=== PATIENT | female | born 1945 | race Caucasian/White ===

== ENCOUNTER 2018-05-17 06:37 | Observation (INO) | payer OTHER ==
[~2018-05-17] VITALS: Ht 170.2 cm; Wt 98.0 kg
--- NOTE | ~2018-05-17 | EKG ---
[address] [address] ELECTROCARDIOGRAM REPORT Name: MANDEEP SWANSON Room #: 209-P [facility] M.R.#: [id number] Admission: 05/17/18 Attend Phys: Tyrel Christianson MD, Discharge: Date of : 41 Report #: [id number] THIS REPORT FOR: //name// [facility] Test Date: 2018-05-17 Test Time: 07:16:55 Pat Name: MANDEEP SWANSON Department: Room: 209 Gender: F Quality Control Head: Rodrigo BHATTI : 1945 Requested By: Tyrel Christianson Order Number: [id number] MD: Red Tavares Measurements Intervals [place] Rate: 49 P: 57 NH: 175 QRS: -30 QRSD: 119 T: 26 QT: 473 QTc: 428 Interpretive Statements Sinus bradycardia Compared to ECG 05/08/2012 08:07:24 No significant changes Electronically Signed On 05-17-2018 12:03:48 TRIPOLER by Red Tavares [email or web address] <ELECTRONICALLY SIGNED> By: Red Tavares MD 05/17/18 1203 D: 12/715 5 Red Tavares MD /HESHAM
--- NOTE | ~2018-05-17 | D ---
[facility] [place] [address] DISCHARGE SUMMARY Name: MANDEEP SWANSON Room #: 209-P [facility] M.R.#: [id number] Admission: 05/17/18 Attend Phys: Tyrel Christianson MD, Discharge: Date of : 43 Report #: [id number] THIS REPORT FOR: //name// CC: Tyrel Valentine Billsameer PIERCE DATE OF SERVICE: 05/17/2018 DISCHARGE DIAGNOSES: 1. Unstable angina. 2. Coronary artery disease with stenting of the proximal right coronary with a 2.5 x 17 mm EluNIR medicated stent. 3. Hypertension. 4. Dyslipidemia. 5. Tobacco dependency. 6. Chronic kidney disease. HISTORY OF PRESENT ILLNESS: For the complete details of the history of present illness, see dictated history and physical. Briefly, the patient is a 72-year-old woman with a history of coronary artery disease with mid right coronary stenting in 2011 with a 2.75 x 18 mm Xience stent. She now presents with progressive chest discomfort with shortness of breath. Many of her symptoms were reminiscent to what she experienced prior to her last stenting procedure many years ago. Her recent evaluation included a VQ scan that was negative for pulmonary embolism upper endoscopy, which demonstrated peptic ulcer disease. She is admitted for coronary angiography. HOSPITAL COURSE: The patient was admitted and underwent coronary angiography. The full details of this can be found under separate heading and dictation. In summary, left ventricular systolic function was normal. Mild plaquing was present in the LAD and circumflex. There was a critical stenosis in the proximal portion of the right coronary. This was successfully ballooned and stented with a 2.5 x 17 mm EluNIR stent postdilated with a noncompliant balloon to 2.75 mm. Her post-procedural course was uneventful. She was treated with heparin, Integrilin, aspirin and prasugrel in the periprocedural setting. Her discharge medicines were reconciled. Due to the patient's history of statin intolerance, she has been maintained on monoclonal antibody therapy with good results. An outpatient lipid profile is planned. DISCHARGE DIET: Low fat, low cholesterol, heart healthy diet. Discharge arrangements were made for outpatient cardiac rehabilitation. DISCHARGE MEDICATIONS: Include aspirin, prasugrel 10 mg daily, Protonix [address] [address] DISCHARGE SUMMARY Name: MANDEEP SWANSON NIRMAL Room #: 209-P [facility] Leandra Shrestha#: [id number] Admission: 05/17/18 Attend Phys: Tyrel Christianson MD, Discharge: Date of : 43 Report #: [id number] daily, sucralfate 1 gram 4 times a day, losartan 50 mg daily, Toprol 25 mg daily, multivitamin, alprazolam as needed. Repatha injection. DISCHARGE FOLLOWUP: With myself in 4-6 weeks, follow up with Dr. Serge Khan in 1-2 weeks. DISCHARGE ACTIVITY: As instructed post-catheterization. DISCHARGE CONDITION: Stable and improved. <ELECTRONICALLY SIGNED> By: Tyrel Christianson MD, [facility] 05/18/18 0918 1636 1752 Tyrel Christianson MD, FAC /nt
--- NOTE | ~2018-05-17 | CATHLAB ---
[facility] [address] [place] [address] INVASIVE PROCEDURE REPORT Name: SKYMANDEEP NIRMAL Room #: 209-P ADM IN .R.#: [id number] Admission: 05/17/18 Attend Phys: Tyrel Christianson, Discharge: Date of : 41 Date of Service: 05/17/18 1304 Report #: [id number] THIS REPORT FOR: //name// APPROVED REPORT Study performed: 05/17/2018 08:53:18 Patient Details Patient Status: Out-Patient Room #: The patient is a 72 year-old female Event Personnel Tyrel Christianson Books Binder, Caleb Duarte, Martina Cunningham Penny, Wes RN Procedures Performed Art Access - R femoral artery* Left Heart Cath w/or w/o Coronaries [id number] [facility] [address] Initial Mod Sed Same Phys/QHP Gr5y [id number] 39781 Mod Sed Same Phys/QHP Ea 204924 HUGO Place w/wo Plasty Single RCA 320778 Hemostasis w/ Mynx Indication Chest pain Procedure Narrative The patient was brought electively to the Cardiac Catheterization Laboratory and was prepped and draped in a sterile manner. The Right Groin^ was infiltrated with 1% Lidocaine subcutaneous anesthesia. A PINNACLE 6FR Sheath #[id number] sheath was inserted into the RFA^. Coronary angiography was performed using coronary diagnostic catheters. The right coronary system was accessed and visualized with a JR 4 catheter. The left coronary system was accessed and visualized with a JL 4 catheter. The left ventricle was accessed and visualized with a Pigtail catheter. Left ventricular/Aortic Valve gradient assessed via catheter pullback. Left ventriculogram was performed in SANCHEZ projection. Closure device was deployed with a 6 Fr Mynx. The patient tolerated the procedure well and there were no complications associated with the procedure. There was no hematoma. Intraoperative Conscious Sedation Sedation start time: 09:29 Case end Time: 10:12 Fentanyl 50 mcg Versed 2 mg Fluoro Time: 5.90 minutes [address] [place] [address] INVASIVE PROCEDURE REPORT Name: SKYMANDEEP NIRMAL Room #: 209-P [facility] IN ..#: [id number] Admission: 05/17/18 Attend Phys: Tyrel Christianson, Discharge: Date of : 41 Date of Service: 05/17/18 1304 Report #: [id number] Dose: DAP 9058 cGycm2 1350 mGy Contrast Type and Amount: Visipaque 155 ml Coronary Angiography The patient's coronary anatomy is right dominant. Diagnostic Cath Left Main Mild distal left main plaquing LAD Mild calcific 20-30% proximal LAD plaquing Diagonal 1 Several relatively small diagonal branches, angiographically normal. Circumflex Moderately large nondominant circumflex OM1 Mild proximal OM1 plaquing OM2 30-40% proximal OM 2 stenosis Right Coronary Severe proximal right coronary stenosis of 99%. Minimal mid right coronary plaquing within the previously placed Xience stent R PDA Normal RPLV Normal Left Ventriculography The left ventricle is normal in size with normal contractility. The left ventricular ejection fraction is estimated to be 60-65%. Left ventricular wall motion abnormalities are not present. There is no mitral insufficiency. Hemodynamics The aortic pressure is 160/71 mmHg with a mean of 106 mmHg. The left ventricular pressure is 206/2 mmHg with a mean of mmHg. The left ventricular end diastolic pressure is 29 mmHg. PCI Technique Lesion Anticoagulation was achieved with Heparin, Integrilin. Patient was preloaded with Effient. Percutaneous coronary intervention was performed on the mid right coronary artery. The lesion stenosis prior to intervention was 99% with TOSHIA 3 flow. A Entelostronic JR 4 Guide Catheter was used to engage the right coronary ostium. A Luge Wire Interventional Guidewire was used to cross the lesion. BALLOON DILATION A Balloon catheter Mozec 2.5 x 14 was inserted and inflated up to 10.00atm for 23seconds. STENT DEPLOYMENT A drug-eluting stent Elunir 2.5 x 17 was inserted and inflated up to 16.00atm for 27seconds. [facility] [address] [place] [address] INVASIVE PROCEDURE REPORT Name: SWANSONMANDEEP Room #: 209-P [facility] IN M.R.#: [id number] Admission: 05/17/18 Attend Phys: Tyrel Christianson, Discharge: Date of : 41 Date of Service: 05/17/18 1304 Report #: [id number] POST STENT DEPLOYMENT BALLOON DILATION A Balloon catheter NC Trek 2.5 x 15 was inserted and inflated up to 22.00atm for 30seconds. Additional Inflation: 22.00atm for 27seconds. Final angiography reveals 0 % stenosis with TOSHIA 3 flow. Conclusion 1. Normal global and regional left ventricular systolic function. EF 65% 2. Mild left main plaquing 3. Mild-moderate circumflex plaquing 4. 99% proximal RCA stenosis, stented with 2.5 x 17mm EluNIR medicated stent, post-dilated to 2.75mmHg 5. Mild mid RCA intrastent plaquing (Xience 2.75mm) Recommendations Smoking Cessation Aggressive Medical Therapy Medications Administered TOÑO Inhibitor (any) Aspirin (any) Beta Zhang (any) Statin (any) Prasugrel Smoking Cessation <ELECTRONICALLY SIGNED> By: Tyrel Christianson MD, [facility] 05/17/18 1304 1304 1304 Tyrel Christianson MD, FACC /INF
--- NOTE | ~2018-05-17 | EKG ---
[address] [address] ELECTROCARDIOGRAM REPORT Name: MANDEEP SWANSON Room #: 209-P [facility] M.R.#: [id number] Admission: 05/17/18 Attend Phys: Tyrel Christianson MD, Discharge: Date of : 43 Report #: [id number] THIS REPORT FOR: //name// [facility] Test Date: 2018-05-17 Test Time: 11:05:05 Pat Name: MANDEEP SWANSON Department: Room: 209 Gender: F Roller Mill Tender: Rodrigo BHATTI : 1945 Requested By: Tyrel Christianson Order Number: [id number] MD: Red Tavares Measurements Intervals [place] Rate: 50 P: 60 VA: 176 QRS: -33 QRSD: 123 T: 40 QT: 470 QTc: 429 Interpretive Statements Sinus rhythm Nonspecific intraventricular conduction delay Compared to ECG 05/08/2012 08:07:24 no significant changes Electronically Signed On 05-17-2018 12:13:36 NEEDLE PUNCH MACHINE OPERATOR by Red Tavares [email or web address] <ELECTRONICALLY SIGNED> By: Red Tavares MD 05/17/18 1213 1105 04 Red Tavares MD /EPI
--- NOTE | ~2018-05-17 | EKG ---
[address] [place] [address] ELECTROCARDIOGRAM REPORT Name: AGNIESZKA SWANSONKAREN KINNEY Room #: 209-P [facility] M.R.#: [id number] Admission: 05/17/18 Attend Phys: Tyrel Christianson MD, Discharge: Date of : 43 Report #: [id number] THIS REPORT FOR: //name// [facility] Test Date: 2018-05-18 Test Time: 07:52:33 Pat Name: MANDEEP SWANSON Department: Room: 209 P Gender: F Director Of Workforce Development: KATHLEEN : 1945 Requested By: Tyrel Christianson Order Number: [id number] MD: Tyrel Christianson Measurements Intervals [place] Rate: 57 P: 51 MD: 169 QRS: -37 QRSD: 117 T: 32 QT: 463 QTc: 451 Interpretive Statements Sinus rhythm Nonspecific IVCD with LAD Baseline wander in lead(s) V1,V2 Compared to ECG 05/17/2018 11:05:05 No significant change was found Electronically Signed On 05-18-2018 11:01:39 INFORMATICA DEVELOPER by Tyrel Christianson [email or web address] <ELECTRONICALLY SIGNED> By: Tyrel Christianson MD, [facility] 05/18/18 1101 0752 0752 Tyrel Christianson MD, [facility] /EPI
[~2018-05-17 06:37] MED LIST: ACETAMINOPHEN325 M1 PO; ASPIRIN81 M2 PO; ATORVASTATIN CA20 MG PO; CARAFATE 1 GM TA1 G1 PO; EFFIENT10 MG PO; FLAGYL500 MG PO; HYDROCODON-ACE1 EAC7; IBUPROFEN 800800 M1 PO; LEVAQUIN 500 M500 M8 PO; MACRODANTIN100 MG; NEPHROCAPS SOFT1 CAP PO; NORCO 5-325 TA1 EACH PO; PEPCID40 MG PO; PHENAZOPYRIDIN200 M2; PROTONIX40 M1 PO; RAPAFLO; REPATHA SU140 MG/1 M SUBQ; VITAMIN D1000 UNI1 PO; VITAMINC500 PO; XANAX 0.5 MG0.5 MG PO
[2018-05-17 07:09] VITALS: BP 133/41
[2018-05-17 07:11] LABS: HEMATOCRIT 40.6 % (37.0-47.0); HEMOGLOBIN 13.8 gm/dL (12.0-15.0); MCH 31.8 pg (26.0-34.0); MCV 93.6 fL (80.0-100.0); RBC 4.34 mil/uL (4.20-5.00); RDW 14.5 % (10.5-14.5); WBC 8.4 thou/uL (4.0-11.0)
[2018-05-17 07:20] LABS: CALCIUM 9.7 mg/dL (8.5-10.1); CREATININE 1.8 mg/dL (0.6-1.0); POTASSIUM 4.4 mmol/L (3.5-5.1)
[2018-05-17] MEDS ORDERED: VITAMIN D5000 UNIT PO (07:25)
[2018-05-17] MEDS ORDERED: BYSTOLIC 5 MG5 M1 PO ×2 (07:27→14:41)
[2018-05-17] MEDS ORDERED: OMEGA-31000 M1 PO (07:28)
[2018-05-17] MEDS ORDERED: BIOTIN1 M1 PO (07:29)
[2018-05-17 10:45] VITALS: BP 135/69
[2018-05-17 12:23] VITALS: BP 115/59
[2018-05-17] MEDS ORDERED: ZANTAC 150MG T150 MG PO (13:32)
[2018-05-17] MEDS ORDERED: PRINIVIL20 M1 PO (13:32)
[2018-05-17] MEDS ORDERED: NOLVADEX20 MG PO (13:32)
[2018-05-17] MEDS ORDERED: AROMASIN25 MG PO (13:33)
[2018-05-17] MEDS ORDERED: CARAFATE 1 GM TA1 G1 PO (14:08)
[2018-05-17 15:36] VITALS: BP 143/60
[2018-05-17 19:54] VITALS: BP 114/48
[2018-05-18 00:09] VITALS: BP 113/46
[2018-05-18 04:30] LABS: HEMATOCRIT 36.7 % (37.0-47.0); HEMOGLOBIN 12.4 gm/dL (12.0-15.0); MCH 31.6 pg (26.0-34.0); MCHC 33.7 g/dL (28.0-37.0); MCV 93.5 fL (80.0-100.0); RBC 3.93 mil/uL (4.20-5.00); RDW 14.5 % (10.5-14.5); WBC 9.3 thou/uL (4.0-11.0)
[2018-05-18 04:40] LABS: ALBUMIN 2.9 g/dL (3.4-5.0); ANION GAP 6 mmol/L (7-16); BUN 22 mg/dL (7-18); CALCIUM 8.9 mg/dL (8.5-10.1); CHLORIDE 105 mmol/L (98-107); CO2 27 mmol/L (21-32); CREATININE 1.7 mg/dL (0.6-1.0); GLUCOSE 117 mg/dL (74-106); SGOT 19 U/L (15-37); SGPT 28 U/L (30-65); SODIUM 138 mmol/L (136-145); TOTAL BILIRUBIN 0.3 mg/dL (<0.1-1.0); TOTAL PROTEIN 6.2 g/dL (6.4-8.2); TROPONIN-I <0.06 ng/mL (<0.06)
[2018-05-18 06:05] VITALS: BP 138/63
[2018-05-18 09:00] VITALS: BP 137/57
[2018-05-18] MEDS ORDERED: ASPIRIN81 M2 PO (09:15)
[2018-05-18] MEDS ORDERED: TOPROL XL25 MG PO (09:15)
[2018-05-18] MEDS ORDERED: EFFIENT10 MG PO (09:15)
[2018-05-18] MEDS ORDERED: COZAAR 50 MG TA50 M1 PO (09:15)
[2018-05-18 11:17] VITALS: BP 138/63
[2018-05-18 11:40] VITALS: BP 137/57
== END 2018-05-18 12:30 | disposition home or self-care (01) ==
LOC: CATH 06:37 → 2N 10:42 → CATH 10:54 → 2N 05-18 12:30
PROVIDERS: Internal Medicine
DX: I25.110 Atherosclerotic heart disease of native coronary artery with unstable angina pectoris (principal); E78.5 Hyperlipidemia, unspecified; I12.9 Hypertensive chronic kidney disease with stage 1 through stage 4 chronic kidney disease, or unspecified chronic kidney disease; N18.9 Chronic kidney disease, unspecified; I35.1 Nonrheumatic aortic (valve) insufficiency; E78.00 Pure hypercholesterolemia, unspecified; I65.23 Occlusion and stenosis of bilateral carotid arteries; F17.210 Nicotine dependence, cigarettes, uncomplicated; Z98.890 Other specified postprocedural states; Z79.899 Other long term (current) drug therapy

== ENCOUNTER 2018-06-07 19:02 | Inpatient (IN) | payer OTHER ==
[~2018-06-07] VITALS: Ht 170.2 cm; Wt 105.4 kg
--- NOTE | ~2018-06-07 | H ---
[facility] [place] [address] HISTORY AND PHYSICAL Name: MANDEEP SWANSON Room #: 204-P ADM IN M.R.#: [id number] Admission: 06/07/18 Attend Phys: Edmund Ernandez MD Discharge: Date of : 43 Report #: [id number] THIS REPORT FOR: //name// CC: Edmund Khan DATE OF SERVICE: 06/07/2018 ATTENDING PHYSICIAN: Dr. Ernandez. PRIMARY CARE PHYSICIAN: Dr. Serge Khan. CHIEF COMPLAINT: Atrial fibrillation with rapid ventricular response. HISTORY OF PRESENT ILLNESS: The patient is a 72-year-old female who was sent as a direct admit from [facility] for atrial fibrillation with RVR. Her recent history dates back to mid-May when she had a stent placed in her proximal RCA here at [facility]. She follows with Dr. Christianson with Cardiology. She had been on Effient as well as metoprolol and losartan. She says she was just about to start cardiac rehab at [facility] yesterday when they noticed that her heart rate was elevated. She said prior to that for a few days, she had been feeling some palpitations. She has also been noticing at home her blood pressure was running low with systolic blood pressures in the 90s. She thought it was due to starting the metoprolol and losartan. She had not been having any dizzy spells or lightheadedness, but did say that her eyes seem to blurry at times. According to Cath ER records, her heart rate was 162 upon arrival, in AFib with RVR. She has never had any history of atrial fibrillation. She is denying any current chest pain. Prior to her recent catheterization, she has been having some chest tightness as well as dyspnea on exertion. Therefore, a planned catheterization was done at that time, though symptoms have now resolved. Her EF during her heart catheterization was 65%. She does have chronic kidney disease and does only have one kidney due to renal cancer in which a right nephrectomy was required. Her last known creatinine was 1.7-1.8 in mid-May 2018. She is currently on a Cardizem drip and resting comfortably in no acute distress. PAST MEDICAL HISTORY: Anxiety, coronary artery disease, hyperlipidemia, hypertension, breast cancer, renal cancer, chronic kidney disease stage 3, gastritis, obstructive sleep apnea. PAST SURGICAL HISTORY: Left elbow repair, skin cancer removal, rectal mass with bowel resection which was benign, bilateral mastectomy, right nephrectomy, coronary stent x 2, cholecystectomy, appendectomy, partial hysterectomy. ALLERGIES: No known drug allergies. [address] [address] HISTORY AND PHYSICAL Name: MANDEEP SWANSON NIRMAL Room #: 204-P [facility] IN M.R.#: [id number] Admission: 06/07/18 Attend Phys: Edmund Ernandez MD Discharge: Date of : 43 Report #: [id number] HOME MEDICATIONS: Effient 10 mg p.o. daily, Repatha 140 mg subQ, metoprolol 25 mg p.o. daily, losartan 50 mg daily, aspirin 325 mg daily, Xanax 0.5 mg at bedtime, ranitidine 150 mg p.o. b.i.d., vitamin C 500 mg daily and vitamin D3 10,000 units daily. SOCIAL HISTORY: The patient smokes 1 cigarette per day. She has been cutting back since December of this year. She reports she has been smoking up to a half pack of cigarettes per day for about 50 years prior to that. She denies any alcohol use or drug use. She does drink 2 cups of coffee and 1 Coke daily. She lives alone. She ambulates independently. She is a full code. FAMILY HISTORY: Her mother had heart disease and a stroke, but at the age of 82. Her father had heart disease and required a CABG, at the age of 84. REVIEW OF SYSTEMS: The patient does report that after her catheterization in May on the same day as her heart cath, she noticed the top of her right foot was sore after the procedure. She thought that it might have gotten bumped or was painful due to positioning during the procedure. This pain has persisted. She did develop some dark reddish bruising to the top of her foot that was very tender. She also has been having some swelling on the top of her foot that is worse with any ambulating. She denies any wound developing. The red area is not pruritic. She denies any known injury to the foot. She has not had any imaging of it. The patient was recently on Bactrim for the redness in her right foot, which she said got somewhat better, but the pain has persisted. She has completed the course of the antibiotic. All other 12-point review of systems was reviewed with the patient and otherwise negative unless stated in the HPI. PHYSICAL EXAMINATION: GENERAL: The patient is an alert female, in no acute distress. VITAL SIGNS: Temperature is 36.5, heart rate 85, respirations 18, blood pressure initially 118/66 and oxygen 98% on room air. HEENT: PERRLA. Sclerae are nonicteric. Oral mucosa is pink and moist. NECK: Supple, no JVD noted. CARDIAC: Heart rate is irregular. No murmurs, rubs or gallops. RESPIRATORY: Breath sounds are clear bilaterally. No wheezing or rhonchi. She is somewhat diminished in the bases. Breathing is nonlabored. ABDOMEN: Obese, soft, nontender with positive bowel sounds. VASCULAR: She does have 2+ edema to the dorsal side of her right foot. Otherwise, no peripheral edema noted. Pedal pulse is weak in the right foot, but posterior tibialis 2+. Toes on the right are warm and pink. SKIN: There is small area of erythema to the dorsal side of the right foot as well as edema in this area that extends up to the base of her toes. This area is extremely tender to palpate. There is no open wound or drainage. This does not appear to be bruising and there is no warmth to the area. NEUROLOGIC: The patient is alert and oriented x 3. Speech [place]. [place] [address] HISTORY AND PHYSICAL Name: MANDEEP SWANSON Room #: 204-P [facility] IN M.R.#: [id number] Admission: 06/07/18 Attend Phys: Edmund Ernandez MD Discharge: Date of : 43 Report #: [id number] moving all extremities equally. No focal neuro deficits noted. LABORATORIES AND DIAGNOSTICS: Blood work done at [facility] showed a WBC of 8.9, hemoglobin 14.3, platelets 291. Sodium 137, potassium 4.6, BUN 42, creatinine is 2.7, and glucose 131. LFTs are within normal limits. INR is 1.0. BNP is 282. Troponins negative. TSH is 3.347. EKG showed atrial fibrillation with RVR, rate of 144. ASSESSMENT AND PLAN: 1. New onset atrial fibrillation with rapid ventricular response. The patient has been given a Cardizem bolus and is currently on Cardizem drip. We will continue to titrate Cardizem, continue to monitor on telemetry, check TSH level. She did have recent cardiac catheterization. Consult Dr. Christianson for further recommendations. 2. Acute kidney injury on chronic kidney disease. Last known creatinine was 1.7 three weeks ago. This may have been due to the heart catheterization dye as well as possibly low perfusion due to hypotension. We will hold losartan and gently hydrate. This could have also been due to recent treatment with Bactrim. We will follow labs closely as she only has one kidney. 3. Coronary artery disease with recent stent to the right coronary artery. She denies any current chest pain. Continue Effient. Troponin at [facility] was negative. 4. Right foot pain and swelling. The patient was recently treated for cellulitis of the right foot. Etiology for this is unknown. Since she just had a heart catheterization, we should rule out arterial thrombus as this does not look like an active infection at this time. We will go ahead and check arterial Doppler in the morning. Check foot x-ray to rule out fracture and check CRP level. Since it does not look actively infected, we will hold off on antibiotics at this time since she is afebrile without any leukocytosis. 5. History of hypertension. She is currently hypotensive. We will hold losartan and gently hydrate, place holding parameters on metoprolol. She did receive a dose of Lopressor upon arrival. 6. History renal cancer. She does have a prior right nephrectomy. Creatinine is elevated. We will continue with plan as above. 7. Hyperlipidemia. Continue with Repatha per Cardiology. 8. Deep venous thrombosis prophylaxis, place sequential compression devices. We will continue to follow the patient closely throughout the hospitalization and make changes based on clinical status. By: 0630 2 Rocio Grullon, SOCORRO /nt
[~2018-06-07 19:02] MED LIST changes: +AROMASIN25 MG PO; +BIOTIN1 M1 PO; +BYSTOLIC 5 MG5 M1 PO; +COZAAR 50 MG TA50 M1 PO; +NOLVADEX20 MG PO; +OMEGA-31000 M1 PO; +PRINIVIL20 M1 PO; +TOPROL XL25 MG PO; +VITAMIN D5000 UNIT PO; +ZANTAC 150MG T150 MG PO
[2018-06-07 19:17] VITALS: BP 118/66
[2018-06-08] VITALS (7 sets, daily range): BP systolic 80–125; BP diastolic 40–64
--- NOTE | 2018-06-08 05:29 | NUR ---
PT WAS A DIRECT ADMIT FROM [facility] AT 1900 WITH AFIB RVR. PT IS ALERT AND ORIENTED WITH NO SIGN OF DISTRESS NOTED IN PT. NURSE PRACTITIONER NOTIFIED OF PATIENT'S ARRIVAL. ORDERS NOTED AND INTITIATED. ADMISSION ASSESSMENT, AND EDUCATION COMPLETED. UPON ARRIVAL, PT IS STILL IN AFIB, CARDIZEM DRIP CONTINUED BASED ON ORDERS. CREDIT RISK ANALYST CONSULT CALLED IN AT [address] SILVEIRA RETURNED CALL AT 2114. ORDERS RECEIVED, PT IS STABLE. HYPOTENSION NOTICED AND REPORTED TO NURSE PRACTITIONER. SCHEDULED MEDS ADMINISTERED TO PT, DENIES ANY FURTHER NEEDS AT THIS TIME.
[2018-06-08 05:59] LABS: HEMATOCRIT 38.2 % (37.0-47.0); HEMOGLOBIN 12.7 gm/dL (12.0-15.0); MCH 31.2 pg (26.0-34.0); MCHC 33.2 g/dL (28.0-37.0); MCV 93.8 fL (80.0-100.0); RBC 4.07 mil/uL (4.20-5.00); RDW 14.3 % (10.5-14.5); WBC 7.4 thou/uL (4.0-11.0)
[2018-06-08 06:17] LABS: ANION GAP 11 mmol/L (7-16); BUN 39 mg/dL (7-18); CALCIUM 8.8 mg/dL (8.5-10.1); CHLORIDE 106 mmol/L (98-107); CO2 21 mmol/L (21-32); CREATININE 2.6 mg/dL (0.6-1.0); GLUCOSE 99 mg/dL (74-106); POTASSIUM 4.6 mmol/L (3.5-5.1); SODIUM 138 mmol/L (136-145); TROPONIN-I <0.06 ng/mL (<0.06)
[2018-06-08 11:19] LABS: URINE BILIRUBIN NEGATIVE (Negative); URINE BLOOD TRACE (Negative); URINE CLARITY CLEAR; URINE COLOR YELLOW; URINE GLUCOSE-RANDOM* NEGATIVE (Negative); URINE KETONES NEGATIVE (Negative); URINE LEUKOCYTES-REFLEX NEGATIVE (Negative); URINE NITRITE-REFLEX NEGATIVE (Negative); URINE PROTEIN (DIPSTICK) NEGATIVE (Negative); URINE SPECIFIC GRAVITY 1.015 (1.005-1.035); URINE UROBILINOGEN 0.2 E.U./dl (0.2-1.0)
--- NOTE | 2018-06-08 16:35 | NUR ---
ASSESSMENT DOCUMENTED. PT ALERT AND ORIENTED. PLEASANT AND COOPERATIVE WITH CARE.SEEN BY DR SILVEIRA. HR ON 60'S. LOW BP THIS AM. CARDIZEM DRIP STOPPED. GIVEN PO CARDIZEM MED THIS AM. REPORT HAVING PAIN ON THE RIGHT FOOT. DR. DAWSON AWARE. NEW ORDERS NOTED. HEATING PAD APPLIED ON THE RIGHT FOOT. WILL CONTINUE TO MONITOR.
--- NOTE | 2018-06-09 02:11 | NUR ---
ASSUMED CARE OF PT AT SHIFT CHANGE. ASSESSMENTS CHARTED. MEDS GIVEN PER AUG. PT AOX4, C/O RIGHT FOOT PAIN, MANAGED WITH HEATING PAD. VSS. DENIES CHEST PAIN. NO S/SX OF CARDIAC OR RESP DISTRESS. PT NSR ON MONITOR THROUGHOUT NIGHT. WILL CONTINUE TO MONITOR AND FOLLOW POC.
[2018-06-09 04:49] VITALS: BP 114/44
[2018-06-09 07:23] LABS: HEMATOCRIT 35.4 % (37.0-47.0); HEMOGLOBIN 11.9 gm/dL (12.0-15.0); MCH 31.5 pg (26.0-34.0); MCHC 33.5 g/dL (28.0-37.0); MCV 94.2 fL (80.0-100.0); RBC 3.76 mil/uL (4.20-5.00); RDW 14.5 % (10.5-14.5); WBC 7.1 thou/uL (4.0-11.0)
[2018-06-09 07:25] VITALS: BP 120/57
[2018-06-09 07:39] LABS: ALBUMIN 2.9 g/dL (3.4-5.0); CALCIUM 8.8 mg/dL (8.5-10.1); CREATININE 2.1 mg/dL (0.6-1.0); PHOSPHORUS 3.4 mg/dL (2.5-4.9); POTASSIUM 4.9 mmol/L (3.5-5.1); TOTAL BILIRUBIN 0.2 mg/dL (<0.1-1.0); TOTAL PROTEIN 6.2 g/dL (6.4-8.2)
--- NOTE | 2018-06-09 08:06 | 2DMMODE ---
[facility] [address] [facility] [place] [address] 2 D/M-MODE ECHOCARDIOGRAM Name: MANDEEP SWANSON NIRMAL Room #: 204-P ADM IN .R.#: [id number] Admission: 06/07/18 Attend Phys: Edmund Ernandez MD Discharge: Date of : 41 Date of Service: 06/09/18 0805 Report #: [id number] THIS REPORT FOR: //name// APPROVED REPORT Study performed: 06/08/2018 09:54:21 EXAM: Comprehensive 2D, Doppler, and color-flow Echocardiogram Patient Location: Bedside Room #: 204 Status: on-call BSA: 2.05 HR: 63 bpm BP: 101/64 mmHg Rhythm: NSR Other Information Study Quality: Adequate Risk Factors: Cardiac Risk Factors: HTN, Hyperlipidemia, Smoking Indications Atrial Fibrillation CAD CAD with Stent RCA (2018) 2D Dimensions RVDd: 41.13 mm IVSd: 10.43 (7-11mm) LVOT Diam: 18.00 (18-24mm) LVDd: 47.01 mm PWd: 11.01 (7-11mm) Ascending Ao: 31.96 (22-36mm) LVDs: 32.60 (25-40mm) Aortic Root: 27.54 mm LV Single Plane 4CH: 60.72 % LV Single Plane 2CH: 67.69 % Biplane EF: 63.2 % Volumes Left Atrial Volume (Systole) Single Plane 4CH: 47.42 mL Single Plane 2CH: 62.41 mL LA ESV Index: 30.00 mL/m2 Aortic Valve [facility] [address] [place] [address] 2 D/M-MODE ECHOCARDIOGRAM Name: MANDEEP SWANSON Room #: 204-P [facility] IN ..#: [id number] Admission: 06/07/18 Attend Phys: Edmund Ernandez MD Discharge: Date of : 41 Date of Service: 06/09/18 0805 Report #: [id number] AoV Peak Michael.: 1.28 m/s AO Peak Gr.: 6.56 mmHg LVOT Max P.68 mmHg LVOT Max V: 1.08 m/s JOHN Vmax: 2.19 cm2 AI Vmax: 3.08 m/s AI Lares: 1.51 m/s2 AI PHT: 588.87 ms Mitral Valve E/A Ratio: 1.6 MV Decel. Time: 260.15 ms MV E Max Michael.: 0.93 m/s MV A Michael.: 0.57 m/s MV PHT: 75.44 ms IVRT: 48.44 ms TDI E/Lateral E': 11.63 E/Medial E': 11.63 Medial E' Michael.: 0.08 m/s Lateral E' Michael.: 0.08 m/s Pulmonary Valve PV Peak Michael.: 1.03 m/s PV Peak Gr.: 4.20 mmHg Pulmonary Vein P Vein S: 0.67 m/s P Vein A: 0.20 m/s P Vein D: 0.82 m/s P Vein A Dur.: 110.7 msec P Vein S/D Ratio: 0.82 Tricuspid Valve TR Peak Michael.: 2.58 m/s RAP Estimate: 7.00 mmHg TR Peak Gr.: 26.59 mmHg PA Pressure: 34.00 mmHg Left Ventricle The left ventricle is normal size. There is normal LV segmental wall motion. There is normal left ventricular wall thickness. Left ventricular systolic function is normal. The left ventricular ejection fraction is within the normal range. LVEF is 60-65%. The left ventricular diastolic function is normal. Right Ventricle The right ventricle is normal size. The right ventricular systolic function is normal. [facility] [address] [place] [address] 2 D/M-MODE ECHOCARDIOGRAM Name: MANDEEP SWANSON NIRMAL Room #: 204-P [facility] IN [facility].#: [id number] Admission: 06/07/18 Attend Phys: Edmund Ernandez MD Discharge: Date of : 41 Date of Service: 06/09/18 0805 Report #: [id number] The left atrium size is normal. The right atrium size is normal. Aortic Valve The aortic valve is normal in structure. Mild aortic regurgitation. There is no aortic valvular stenosis. Mitral Valve There is mild mitral annular calcification. Trace to mild mitral regurgitation. No evidence of mitral valve stenosis. Tricuspid Valve The tricuspid valve is normal in structure. Trace tricuspid regurgitation. Pulmonary artery pressure is 34 mmHg. Pulmonic Valve The pulmonary valve is normal in structure. Trace pulmonic regurgitation. Great Vessels The aortic root is normal in size. IVC is normal in size and collapses >50% with inspiration. Pericardium There is no pericardial effusion. <Conclusion> The left ventricle is normal size. LVEF is 60-65%. The left ventricular diastolic function is normal. The right ventricle is normal size. The left atrium size is normal. Mild aortic regurgitation. There is mild mitral annular calcification. Trace to mild mitral regurgitation. Trace tricuspid regurgitation. Pulmonary artery pressure is 34 mmHg. The aortic root is normal in size. There is no pericardial effusion. <ELECTRONICALLY SIGNED> By: Hawk Reagan MD, FACC 06/09/18804 4 4 Hawk Reagan MD, FACC /INF
[2018-06-09 11:50] VITALS: BP 120/46
[2018-06-09 15:30] VITALS: BP 130/50
--- NOTE | 2018-06-09 17:47 | NUR ---
PT ALERT AND ORIENTED. VSS. DENIED HAVING PAIN OR DISCOMFORT. SEEN BY DR. DAWSON AND DR. PRIDE. NEW ORDERS NOTED. PROGRESSING WELL TOWARD DISCHARGE GOAL. WILL CONTINUE TO MONITOR.
[2018-06-09 19:36] VITALS: BP 140/84
--- NOTE | 2018-06-09 21:53 | EKG ---
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1945 Requested By: Hawk Reagan Order Number: [id number] MD: Arcenio Quesada Measurements Intervals [place] Rate: 107 P: MN: QRS: -38 QRSD: 109 T: 59 QT: 362 QTc: 483 Interpretive Statements Atrial fibrillation Abnormal R-wave progression, late transition Left ventricular hypertrophy Compared to ECG 05/18/2018 07:52:33 Left ventricular hypertrophy now present Sinus rhythm no longer present Intraventricular conduction delay no longer present Electronically Signed On 06-09-2018 21:53:46 [employer] by Arcenio Quesada [email or web address] <ELECTRONICALLY SIGNED> By: Arcenio Quesada MD 06/09/18 2153 0640 Arcenio Quesada MD /EPI
[2018-06-10 04:02] LABS: ALBUMIN 2.6 g/dL (3.4-5.0); CALCIUM 8.5 mg/dL (8.5-10.1); CREATININE 1.9 mg/dL (0.6-1.0); PHOSPHORUS 3.1 mg/dL (2.5-4.9); POTASSIUM 4.4 mmol/L (3.5-5.1)
[2018-06-10 04:31] VITALS: BP 118/49
--- NOTE | 2018-06-10 04:38 | NUR ---
pt resting quietly in room thru the noc, scheduled lyrica given for r foot pain and pt states much relief noted vss, fluids infusing in l upper arm, will con't to monitor per ppoc.
[2018-06-10 07:30] VITALS: BP 128/62
[2018-06-10 13:00] VITALS: BP 176/74
[2018-06-10 16:00] VITALS: BP 138/59
--- NOTE | 2018-06-10 16:22 | NUR ---
ASSUMED CARE THIS AM - PT ALERT AND PLEASANT - ASSESSMENTS COMPLETED CHARTED - NO COMPLAINTS THROUGHOUT THE DAY FROM PT - VSS - PROBABLE DISCHARGE IN THE AM
[2018-06-10 21:30] VITALS: BP 161/69
[2018-06-11 02:57] LABS: HEMATOCRIT 34.2 % (37.0-47.0); HEMOGLOBIN 11.2 gm/dL (12.0-15.0); MCH 30.7 pg (26.0-34.0); MCHC 32.8 g/dL (28.0-37.0); MCV 93.6 fL (80.0-100.0); RBC 3.65 mil/uL (4.20-5.00); RDW 13.9 % (10.5-14.5); WBC 7.2 thou/uL (4.0-11.0)
[2018-06-11 03:11] LABS: ALBUMIN 2.7 g/dL (3.4-5.0); CALCIUM 8.4 mg/dL (8.5-10.1); CREATININE 1.8 mg/dL (0.6-1.0); PHOSPHORUS 3.8 mg/dL (2.5-4.9); POTASSIUM 4.2 mmol/L (3.5-5.1)
[2018-06-11 04:25] VITALS: BP 130/53
--- NOTE | 2018-06-11 06:56 | NUR ---
AASUMED PT CARE AT 1900 WITH BEDSIDE REPORT TAKEN WITH NO0 SIGN OF DISTRESS NOTED IN PT. PT IS ALERT AND ORIENTED. PT IS STABLE WITH VITAL SIGN STABLE. SCHEDULED MED ADMINISTERED TO PT. DENIES ANY NEED AT THIS TIME. PT DENIES ANY PAIN. DENIES ANY FURTHER NEED AT THIS TIME.
[2018-06-11 07:40] VITALS: BP 113/53
[2018-06-11 11:35] VITALS: BP 137/59
[2018-06-11] MEDS ORDERED: XARELTO15 MG PO (11:50)
[2018-06-11] MEDS ORDERED: PACERONE 200 M200 M1 PO (11:52)
[2018-06-11] MEDS ORDERED: METOPROLOL SUCC50 MG PO (11:53)
[2018-06-11] MEDS ORDERED: TORSEMIDE20 MG PO (11:54)
[2018-06-11] MEDS ORDERED: LYRICA 50 MG50 MG PO (11:54)
[2018-06-11 12:26] VITALS: BP 113/57
--- NOTE | 2018-06-14 09:41 | HC ---
[facility] [place] [address] CONSULTATION Name: SKYMANDEEP NIRMAL Room #: 204-P [facility] IN M.R.#: [id number] Admission: 06/07/18 Attend Phys: Paulina Barillas MD Discharge: 06/11/18 Date of : 41 Report #: [id number] THIS REPORT FOR: //name// CC: Edmund Khan REASON FOR PRESENTATION: Direct admit from [facility] because of AFib. REASON FOR CONSULTATION: Acute kidney injury. HISTORY OF PRESENT ILLNESS: A 72-year-old with known history of nephrectomy, baseline creatinine of around 1.7. She was in the hospital back in May for a proximal right coronary artery stent. At that time, her creatinine was 1.7. She was in her cardiac rehab and was found to be in AFib and RVR and was sent to our hospital for further evaluation and management. She was managed accordingly with Oj mishra. I am being consulted to manage her chronic kidney disease. She tells me that she does not see about her urologist and her primary care physician. 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 PAST MEDICAL HISTORY: 1. Coronary artery disease. 2. Renal cell carcinoma post-nephrectomy. 3. Breast cancer. 4. Hypertension. 5. Hyperlipidemia 6. Obstructive sleep apnea. 7. Rectal mass with bowel resection. 8. Coronary artery disease. 9. Appendectomy. 10. Hysterectomy. 11. Cholecystectomy. MEDICATIONS: 1. Metoprolol. 2. Xanax. 3. Aspirin. 4. Losartan. 5. Effient. 6. Ranitidine. SOCIAL HISTORY: Smoker. No drug or alcohol abuse. FAMILY HISTORY: Mother had heart disease and stroke. Father had CABG. REVIEW OF SYSTEMS: GENERAL: No fever or chills. CARDIOVASCULAR: Dizziness and lightheadedness. [facility] [address] [place] [address] CONSULTATION Name: SWANSONMANDEEP Room #: 204-P [facility] IN .R.#: [id number] Admission: 06/07/18 Attend Phys: Paulina Barillas MD Discharge: 06/11/18 Date of : 41 Report #: [id number] PULMONARY: No cough or hemoptysis. GASTROINTESTINAL: No nausea or vomiting. GENITOURINARY: No frequency, no urgency. SKIN: No rash or ulceration. PHYSICAL EXAMINATION: GENERAL: Alert, oriented, in no apparent distress. VITAL SIGNS: Blood pressure is 114/44. Temperature 36.7. HEAD AND NECK: No jugular venous distention, no bruit, no thyromegaly. CHEST: Clear to auscultation bilaterally. CARDIOVASCULAR: No rub detected. ABDOMEN: Soft, nontender with no hepatosplenomegaly. LOWER EXTREMITIES: Trace edema. LABORATORY VALUES: From today reveal that her creatinine is slightly down from 2.6-2.1. ASSESSMENT, IMPRESSION AND PLAN: 1. Acute kidney injury. 2. Chronic kidney disease. 3. Status post nephrectomy. 4. Atrial fibrillation with rapid ventricular response. 5. Coronary artery disease. 6. Baseline creatinine seems to be around 1.5. Her acute kidney injury is likely related to her rhythm issues and hypertension. 7. Avoid further hypotensive episodes. 8. Continue with IV fluid. 9. Avoid losartan for now. 10. Need long-term followup as an outpatient. <ELECTRONICALLY SIGNED> By: Zora Castañeda MD 06/14/18 0941 0807 1158 Zora Castañeda MD /nt
== END 2018-06-11 13:06 | disposition home or self-care (01) | DRG 682 ==
LOC: 2N 19:02
PROVIDERS: Hospitalist; Nurse Practitioner Acute Care; ADMIT Internal Medicine
DX: N17.9 Acute kidney failure, unspecified (principal); I50.33 Acute on chronic diastolic (congestive) heart failure; I13.0 Hypertensive heart and chronic kidney disease with heart failure and stage 1 through stage 4 chronic kidney disease, or unspecified chronic kidney disease; I48.91 Unspecified atrial fibrillation; I25.10 Atherosclerotic heart disease of native coronary artery without angina pectoris; F41.9 Anxiety disorder, unspecified; M79.671 Pain in right foot; E78.00 Pure hypercholesterolemia, unspecified; N18.3 Chronic kidney disease, stage 3 (moderate); I95.9 Hypotension, unspecified; F17.210 Nicotine dependence, cigarettes, uncomplicated; E78.5 Hyperlipidemia, unspecified; K59.00 Constipation, unspecified; G47.33 Obstructive sleep apnea (adult) (pediatric); Z90.710 Acquired absence of both cervix and uterus; Z90.49 Acquired absence of other specified parts of digestive tract; Z85.3 Personal history of malignant neoplasm of breast; Z85.53 Personal history of malignant neoplasm of renal pelvis; Z79.899 Other long term (current) drug therapy; Z82.49 Family history of ischemic heart disease and other diseases of the circulatory system; Z82.3 Family history of stroke; Z90.5 Acquired absence of kidney; Z95.5 Presence of coronary angioplasty implant and graft; Z90.13 Acquired absence of bilateral breasts and nipples
CPT/HCPCS: 10078; 10081

== ENCOUNTER → 2019-10-09 | Outpatient (CLI) | payer OTHER ==
[~2019-10-09] MED LIST changes: +LYRICA 50 MG50 MG PO; +METOPROLOL SUCC50 MG PO; +PACERONE 200 M200 M1 PO; +TORSEMIDE20 MG PO; +XARELTO15 MG PO
== END ==
LOC: SJCVC 12:50
DX: R94.31 Abnormal electrocardiogram [ECG] [EKG] (principal); R00.1 Bradycardia, unspecified; I25.10 Atherosclerotic heart disease of native coronary artery without angina pectoris; I48.0 Paroxysmal atrial fibrillation; E78.5 Hyperlipidemia, unspecified; I12.9 Hypertensive chronic kidney disease with stage 1 through stage 4 chronic kidney disease, or unspecified chronic kidney disease; N18.2 Chronic kidney disease, stage 2 (mild); F17.201 Nicotine dependence, unspecified, in remission; Z85.528 Personal history of other malignant neoplasm of kidney

== ENCOUNTER → 2020-03-15 | Outpatient (CLI) | payer OTHER | LOC: SJCVC 11:26 | PROVIDERS: ATTEND Internal Medicine | DX: I25.10 Atherosclerotic heart disease of native coronary artery without angina pectoris (principal); R00.1 Bradycardia, unspecified; I48.0 Paroxysmal atrial fibrillation; E78.5 Hyperlipidemia, unspecified; I12.9 Hypertensive chronic kidney disease with stage 1 through stage 4 chronic kidney disease, or unspecified chronic kidney disease; N18.2 Chronic kidney disease, stage 2 (mild); F17.201 Nicotine dependence, unspecified, in remission; Z79.899 Other long term (current) drug therapy; Z85.528 Personal history of other malignant neoplasm of kidney ==

== ENCOUNTER → 2020-09-13 | Outpatient (CLI) | payer OTHER | LOC: SJCVC 14:03 | PROVIDERS: ATTEND Internal Medicine | DX: R94.31 Abnormal electrocardiogram [ECG] [EKG] (principal); I25.10 Atherosclerotic heart disease of native coronary artery without angina pectoris; I48.0 Paroxysmal atrial fibrillation; E78.5 Hyperlipidemia, unspecified; I12.9 Hypertensive chronic kidney disease with stage 1 through stage 4 chronic kidney disease, or unspecified chronic kidney disease; N18.2 Chronic kidney disease, stage 2 (mild); F17.201 Nicotine dependence, unspecified, in remission; Z85.528 Personal history of other malignant neoplasm of kidney; Z88.8 Allergy status to other drugs, medicaments and biological substances; Z79.899 Other long term (current) drug therapy; Z87.891 Personal history of nicotine dependence ==

== ENCOUNTER → 2020-10-15 | Outpatient (CLI) | payer OTHER | LOC: SJCVCIMAG 08:33 | PROVIDERS: ATTEND Internal Medicine | DX: I08.3 Combined rheumatic disorders of mitral, aortic and tricuspid valves (principal); I77.89 Other specified disorders of arteries and arterioles; R94.31 Abnormal electrocardiogram [ECG] [EKG]; R00.1 Bradycardia, unspecified; I25.10 Atherosclerotic heart disease of native coronary artery without angina pectoris; I48.0 Paroxysmal atrial fibrillation; E78.5 Hyperlipidemia, unspecified; I12.9 Hypertensive chronic kidney disease with stage 1 through stage 4 chronic kidney disease, or unspecified chronic kidney disease; N18.2 Chronic kidney disease, stage 2 (mild); F17.201 Nicotine dependence, unspecified, in remission; I65.23 Occlusion and stenosis of bilateral carotid arteries; E78.00 Pure hypercholesterolemia, unspecified; Z90.49 Acquired absence of other specified parts of digestive tract; Z98.890 Other specified postprocedural states; Z88.8 Allergy status to other drugs, medicaments and biological substances; Z79.82 Long term (current) use of aspirin; Z79.899 Other long term (current) drug therapy; Z85.528 Personal history of other malignant neoplasm of kidney; Z82.49 Family history of ischemic heart disease and other diseases of the circulatory system ==

== ENCOUNTER → 2021-04-20 | Outpatient (CLI) | payer OTHER | LOC: SJCVC 09:59 | PROVIDERS: ATTEND Internal Medicine | DX: R94.31 Abnormal electrocardiogram [ECG] [EKG] (principal); R00.1 Bradycardia, unspecified; I25.10 Atherosclerotic heart disease of native coronary artery without angina pectoris; I48.0 Paroxysmal atrial fibrillation; E78.5 Hyperlipidemia, unspecified; I12.9 Hypertensive chronic kidney disease with stage 1 through stage 4 chronic kidney disease, or unspecified chronic kidney disease; I35.1 Nonrheumatic aortic (valve) insufficiency; N18.2 Chronic kidney disease, stage 2 (mild); F17.201 Nicotine dependence, unspecified, in remission; Z85.528 Personal history of other malignant neoplasm of kidney; Z82.49 Family history of ischemic heart disease and other diseases of the circulatory system; Z88.8 Allergy status to other drugs, medicaments and biological substances; Z79.82 Long term (current) use of aspirin; Z79.899 Other long term (current) drug therapy ==